=== PATIENT | male | born 1965 | race Two or more races ===

== ENCOUNTER → 2025-01-28 | Emergency (ER) | payer OTHER ==
[~2025-01-28] VITALS: Ht 160 cm; Wt 69.4 kg
[~2025-01-28] MED LIST: ACETAMINOPHEN 500 MG GEL..CAP PO ONE; BENICAR20 MG PO; BENZONATATE200 M1 PO; CETIRIZINE HCL 10 MG TABLET PO ONE; CETIRIZINE HCL 5MG/5ML BLIST.PACK PO ONE; HYDROCODONE/CHLORPHEN P-STIREX 5 ML ML PO ONE; IPRAT-ALBUT 0.5-3 ML IH; IPRATROPIUM BROMIDE 0.5 MG/2.5 ML AMPUL.NEB IH ONE; IPRATROPIUM BROMIDE 0.5 MG/2.5 ML AMPUL.NEB IH SCH; LEVALBUTEROL HCL 0.63 MG/3 ML SOLUTION IH ONE; LEVALBUTEROL HCL 1.25 MG/3 ML SOLUTION IH SCH; MEDROLPACK PO; METHYLPREDNISOLONE SOD SUCC 125 MG VIAL IV ONE; METHYLPREDNISOLONE SOD SUCC 125 MG VIAL ONE; OZEMPIC2 MG/0.75 SQ; PROAIR RESPICL90 MCG IH; SINGULAIR10 MG PO; ZITHROMAX500 MG PO
[2025-01-28 17:06] LABS: BASO % 0.7 % (0.1-1.2); EOS # 0.10 (0.04-0.54); EOS % 1.4 % (0.7-7.0); LYMPH # 1.09 (1.18-3.74); LYMPH % 15.0 % (19.3-53.1); MEAN PLATELET VOLUME 9.30 fl (9.4-12.4); MONO # 0.97 (0.24-0.82); NEUT # 5.05 (1.56-6.13); NEUT % 69.3 % (34.0-71.1); RED CELL DISTRIBUTION WIDTH 14.5 % (11.6-14.4)
[2025-01-28 17:18] LABS: MONO % 13.3 % (4.7-12.5)
[2025-01-28 17:51] LABS: ALT/SGPT 26.0 U/L (12-78); AST/SGOT 13.0 U/L (15-37); BILIRUBIN TOTAL 0.34 mg/dL (0.3-1.2); BUN CREA RATIO 64.0 (7.0-25.0); CREATININE SERUM 0.42 mg/dL (0.70-1.30); GFR 208.12; GLOBULINA 3.6 G/DL (2.4-3.5); GLUCOSE FASTING 97.0 mg/dL (65-100); OSMOLALITY SERUM 288.0 MOSM/KG (275-295)
[2025-01-28 17:53] LABS: COVID-19 AG NEGATIVE (NEGATIVE)
== END | disposition home or self-care (01) ==
LOC: ER 13:57
PROVIDERS: General Practice
DX: B34.9 Viral infection, unspecified (principal); R05.8 Other specified cough; I10 Essential (primary) hypertension; E11.9 Type 2 diabetes mellitus without complications; Z91.041 Radiographic dye allergy status; Z88.0 Allergy status to penicillin
CPT/HCPCS: 36415; 71046; 82803; 94640; 96365; 99283; J3490